=== PATIENT | male | born 1935 ===

== ENCOUNTER 2017-01-27 11:26 | Emergency (ER) | payer MEDICARE, MEDICAID ==
[2017-01-27 11:32] VITALS: BP 180/80; PULSE 79; RESP 16; TEMP 97; O2SAT 100
--- NOTE | 2017-01-27 12:29 | ED PDOC ---
HPI: General Adult Time Seen by Provider: 01/27/17 11:31 Chief Complaint (Nursing): Back Pain History Per: Patient Additional Complaint(s): Pt. states earlier today he was attempting to get out of bed but did not have his cane and he accidentally tripped and fell backwards injuring his R forearm and his lower back. States he fell flat on his back. Denies head injury, LOC, N/ V, chest pain, abdominal pain. Pt. states he was able to get up on his own. Against Medical Advice - AMA Patient Left Against Medical Advice: The patient declines admission to the hospital and wishes to leave the Emergency Department. This action is against my medical advice. This decision was made with informed refusal. The patient was told that admission to the hospital is necessary. Explanation of the reasons why were discussed. The risks of leaving were explained to the patient and include, but are not limited to, worsening of known or currently unknown conditions, permanent disability and from undiagnosed or untreated conditions. The patient has the capacity to make this informed decision and understands my explanation of the current medical problem and risks of leaving. The patient voluntarily accepts these risks and signed an AMA form documenting our conversation. The patient was given the opportunity to ask questions and reconsider. The patient was encouraged to return to the Emergency Department at any time for further care. 01/27/17 14:00 Pt. informed that he requires CT LS spine. Results and need for further imaging were d/w patient but refused and states he will f/u with [facility] instead. Pt. states he will sign AMA. This discussion was made via gas station attendant #[id number] Past Medical History Reviewed: Historical Data, Nursing Documentation, Vital Signs Vital Signs: Last Vital Signs Temp 97.0 F L 01/27/17 11:29 Pulse 79 01/27/17 11:29 Resp 16 01/27/17 11:29 BP 180/80 H 01/27/17 11:29 Pulse Ox 100 01/27/17 19:47 - Medical History PMH: Diabetes - Family History Family History: States: No Known Family Hx - Home Medications Home Medications: Ambulatory Orders Medication Instructions Recorded Tramadol HCl [Ultram] 50 mg PO BID PRN #10 tablet 01/27/17 - Allergies Allergies/Adverse Reactions: Allergies Allergy/AdvReac Type Severity Reaction Status Date / Time No Known Allergies Allergy Unverified 12/14/15 11:03 Review of Systems ROS Statement: Except As Marked, All Systems Reviewed And Found Negative Physical Exam - Physical Exam Appears: Positive for: Well, Non-toxic, No Acute Distress Head Exam: Positive for: ATRAUMATIC, NORMAL INSPECTION, NORMOCEPHALIC Skin: Positive for: Normal Color, Warm. Negative for: Rash Eye Exam: Positive for: EOMI, Normal appearance, PERRL ENT: Positive for: Normal ENT Inspection, TM Is/Are (no hemotympanum b/l) Neck: Positive for: Normal, Painless ROM Cardiovascular/Chest: Positive for: Regular Rate, Rhythm, Chest Non Tender Respiratory: Positive for: CNT, Normal Breath Sounds Pulses-Radial (L): 2+ Pulses-Radial (R): 2+ Gastrointestinal/Abdominal: Positive for: Normal Exam, Bowel Sounds, Soft. Negative for: Tenderness Back: Positive for: Normal Inspection, Muscle Spasm (b/l paralumbar tenderness ) . Negative for: L CVA Tenderness, R CVA Tenderness, Vertebral Tenderness Extremity: Positive for: Normal ROM, Other (R forearm with superficial abrasion but no laceration, swelling, or deformity. ) Neurologic/Psych: Positive for: Alert, Oriented, Gait (steady with use of cane) . Negative for: Aphasia, Facial Droop - ECG O2 Sat by Pulse Oximetry: 100 - Progress ED Course And Treament: Tylenol 650mg PO. LS spine, R forearm x-ray ordered. Pt. states his last tetanus was 1 year ago. Disposition - Clinical Impression Clinical Impression: Lumbar compression fracture, Left against medical advice - Patient ED Disposition Is Patient to be Admitted: No - Disposition Disposition: Against Medical Advice Disposition Time: 14:06 Condition: STABLE Prescriptions: Tramadol HCl [Ultram] 50 mg PO BID PRN #10 tablet PRN Reason: Other Instructions: Vertebral Compression Fracture (ED), Against Medical Advice (ED) Forms: [employer] (Wolof) Print Language: THAI
--- NOTE | 2017-01-27 15:04 | RAD ---
PROCEDURE: Radiographs of the Right Forearm HISTORY: trauma COMPARISON: No prior study available for comparison. TECHNIQUE: Frontal and lateral views obtained. FINDINGS: BONES: No evidence of acute displaced fracture nor dislocation. Osseous structures intact. No cortical destructive lesions. JOINT SPACES: Joint spaces are relatively preserved with no significant osteoarthritis. OTHER FINDINGS: Vascular calcifications are present. . Soft tissues are otherwise unremarkable IMPRESSION: No evidence of acute displaced fracture nor dislocation.
--- NOTE | 2017-01-27 15:09 | RAD ---
PROCEDURE: Radiographs of the Lumbar Spine. HISTORY: trauma COMPARISON: Comparison made with radiographs of the lumbar spine dated 07/31/2012. FINDINGS: BONES: The current study reveals is an acute compression fracture of a L1 segment. . Clinical correlation with physical exam. The no significant retropulsed fragments so far as can be seen. The remaining lumbar vertebral bodies otherwise exhibit relatively normal stature. There is mild fish-mouth endplate deformities of the T12 and T11 segments. DISC SPACES: Multilevel degenerative spondylosis. Changes include varying degrees of mild posterior disc space narrowing with endplate eburnation and small anterolateral osteophyte formation. OTHER FINDINGS: Vascular calcifications with left iliac endovascular stent graft again noted. . 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 . See above discussion for additional details and findings. . Mild aneurysmal dilatation of the distal abdominal aorta as above. Note that this report was placed in PA review folder for followup.
== END 2017-01-27 19:07 | disposition home or self-care (01) ==
LOC: H.ER 11:26
DX: M48.56XA Collapsed vertebra, not elsewhere classified, lumbar region, initial encounter for fracture (principal); M79.631 Pain in right forearm; W19.XXXA Unspecified fall, initial encounter; Y92.89 Other specified places as the place of occurrence of the external cause; E11.9 Type 2 diabetes mellitus without complications; I71.4 Abdominal aortic aneurysm, without rupture

== ENCOUNTER 2018-07-08 20:37 | Observation (INO) | payer OTHER ==
[2018-07-08 20:44] VITALS: BMI 20.9
[2018-07-08] MEDS ORDERED: Albuterol 0.083% Inhal Sol (2.5 mg/3 mL) UD INH STA (21:23)
--- NOTE | 2018-07-08 21:32 | ED PDOC ---
ED Additional Note - Date & Time of Evaluation Date of Evaluation: 07/08/18 Time of Evaluation: 20:50 - Physician Additional Note Physician Additional Note: Patient assessed and evaluated alongside CHRIS Sprague. Patient tripped over a wire on stage and fell on right elbow, sustaining a laceration which is likely an open fracture. Plan includes pain meds, tetanus booster, antibiotics, and ortho consult. Scribe Attestation: Documented by Sammie Granda, acting as a scribe for Angel Figueredo MD. Provider Scribe Attestation: All medical record entries made by the Scribe were at my direction and personally dictated by me. I have reviewed the chart and agree that the record accurately reflects my personal performance of the history, physical exam, me dical decision making, and the department course for this patient. I have also personally directed, reviewed, and agree with the discharge instructions and disposition.
[2018-07-08] MEDS ORDERED: Albuterol 0.083% Inhal Sol (2.5 mg/3 mL) UD ONE (21:44)
[2018-07-08 21:58] LABS: BASO # 0.1 K/uL (0.0-0.2); BASO % 0.9 % (0.0-2.0); EOS % 0.5 % (0.0-4.0); HEMOGLOBIN 10.6 g/dL (12.0-18.0); LYMPH # 0.8 K/uL (1.0-4.3); LYMPH % 10.4 % (20.0-40.0); MEAN CELL VOLUME 90.2 fl (80.0-94.0); MEAN CORPUSCULAR HEMOGLOBIN 29.5 pg (27.0-31.0); MEAN CORPUSCULAR HGB CONC 32.7 g/dL (33.0-37.0); MEAN PLATELET VOLUME 7.4 fl (7.2-11.7); MONO # 0.4 K/uL (0.0-0.8); MONO % 5.6 % (0.0-10.0); NEUT % 82.6 % (50.0-75.0); NRBC % 0.1 % (0.0-0.0); RBC 3.59 Mil/uL (4.40-5.90); RED CELL DISTRIBUTION WIDTH 17.8 % (11.5-14.5); WHITE BLOOD COUNT 7.3 K/uL (4.8-10.8)
[2018-07-08 22:07] LABS: ALB/GLOB RATIO 1.4 (1.0-2.1); ALBUMIN 4.2 g/dL (3.5-5.0); ALT/SGPT 16 U/L (21-72); AST/SGOT 17 U/L (17-59); BLOOD UREA NITROGEN 31 mg/dl (9-20); CALCIUM 8.9 mg/dL (8.4-10.2); GFR NON-AFRICAN AMERICAN 41
--- NOTE | 2018-07-09 01:52 | CP.PCM.HP ---
<Sultan Cleopatra - Last Filed: 07/09/18 02:49> History of Present Illness - History of Present Illness History of Present Illness: Rafaadriaefrain Phylicia: Priti [id number] History taken from patient and review of patients medical record CC: leg pain and fall HPI: 82 year old Male, lives alone, with PMHx DMII, HTN, GERD, anemia, CKD, Prostate CA, Vertebra compression fracture brought in to [facility] by ambulance presents with complaints of an unwitnessed fall around 4 pm yesterday at home. Patient reports he was changing his lower garment on his bed and fell on the floor in the process, landed on his knees on the ground and hit his head. States he was unable to get up from floor due to feeling dizzy and weak. Patient reports 3-4 episodes of vomiting after the fall. Patient does reports to loss of consciousness for ~10 minutes. States he was on the floor for approximately 2 hours. Patients neighbor checked on him and called ambulance. Patient reports generalized bodyaches including B/L lower extremities pain. States he has hx intermittent dizziness for several weeks. Also, reports history of urinary retention in the past. Denies any cough, dyspnea, or abdominal pain. Patient is admitted for head injury, anemia and renal insufficiency. PMD: Dr. Chávez (previous provider [facility], last visit on 11/2017) ROS: All 12 systems reviewed and negative except as mentioned in HPI PMHx: DMII, HTN, GERD, Prostate CA, CKD PSHx: Hernia repair in 2013, Left testicle resection in 2014 Social hx: Lives alone, uses cane to ambulate. Smokes 3-4 cigarettes for 40+years. Denies drugs/Etoh use. Family hx: unknown Medications: reviewed, see med recs Allergies: NKDA yellow pages space salesperson: Daughter Kush Hewitt [phone] Present on Admission - Present on Admission Any Indicators Present on Admission: No Review of Systems - Review of Systems Review of Systems: All 12 systems reviewed and negative except as mentioned in HPI Past Patient History - Infectious Disease Hx of Infectious Diseases: None - Past Social History Smoking Status: Never Smoked - CARDIAC Hx Hypertension: Yes - HEENT Hx Cataracts: Yes - ENDOCRINE/METABOLIC Hx Diabetes Mellitus Type 2: Yes - MUSCULOSKELETAL/RHEUMATOLOGICAL Hx Back Pain: Yes - GENITOURINARY/GYNECOLOGICAL Hx Prostate Cancer: Yes - PSYCHIATRIC Hx Substance Use: No - SURGICAL HISTORY Hx Surgeries: Yes Hx Herniorrhaphy: Yes Other/Comment: removal of rt testicle - ANESTHESIA Hx Anesthesia: Yes Hx Anesthesia Reactions: No Hx Malignant Hyperthermia: No Meds Allergies/Adverse Reactions: Allergies Allergy/AdvReac Type Severity Reaction Status Date / Time No Known Allergies Allergy Verified 07/08/18 20:44 Physical Exam - Constitutional Appears: Non-toxic, No Acute Distress, Unkempt - Head Exam Head Exam: ATRAUMATIC, NORMOCEPHALIC - Eye Exam Eye Exam: EOMI, Normal appearance, PERRL - ENT Exam ENT Exam: Mucous Membranes Moist, Normal Exam Additional comments: No hemotympanum - Neck Exam Neck exam: Positive for: Normal Inspection - Respiratory Exam Respiratory Exam: Rales (b/l lower lung), NORMAL BREATHING PATTERN. absent: Accessory Muscle Use, Wheezes, Respiratory Distress - Cardiovascular Exam Cardiovascular Exam: REGULAR RHYTHM, RRR, +S1 - GI/Abdominal Exam GI & Abdominal Exam: Normal Bowel Sounds, Soft Additional comments: +Pelvis/bladder distension - Extremities Exam Extremities exam: Positive for: pedal pulses present. Negative for: calf tenderness, joint swelling Additional comments: right hip seems to be slightly externally rotated but not short compared to left leg. - Back Exam Back exam: absent: CVA tenderness (L), CVA tenderness (R) - Neurological Exam Neurological exam: Alert, CN II-XII Intact, Oriented x3 - Psychiatric Exam Psychiatric exam: Normal Affect, Normal Mood - Skin Skin Exam: Dry Results - Vital Signs Recent Vital Signs: Last Vital Signs Temp 97.3 F L 07/08/18 20:44 Pulse 78 07/08/18 20:44 Resp 18 07/08/18 20:44 BP 120/61 07/08/18 20:44 Pulse Ox 92 L 07/08/18 20:44 - Labs Result Diagrams: 07/08/18 21:51 07/08/18 21:51 Labs: Laboratory Results - last 24 hr 07/08/18 07/08/18 07/08/18 20:49 21:51 21:51 WBC 7.3 RBC 3.59 L Hgb 10.6 L Hct 32.4 L MCV 90.2 D MCH 29.5 MCHC 32.7 L RDW 17.8 H Plt Count 281 MPV 7.4 Neut % (Auto) 82.6 H Lymph % (Auto) 10.4 L Forrest % (Auto) 5.6 Eos % (Auto) 0.5 Baso % (Auto) 0.9 Neut # (Auto) 6.0 Lymph # (Auto) 0.8 L Forrest # (Auto) 0.4 Eos # (Auto) 0.0 Baso # (Auto) 0.1 Sodium 137 Potassium 5.0 Chloride 100 Carbon Dioxide 24 Anion Gap 18 BUN 31 H Creatinine 1.6 H Est GFR ( Amer) 50 Est GFR (Non-Af Amer) 41 POC Glucose (mg/dL) 123 H Random Glucose 111 H Calcium 8.9 Total Bilirubin 0.2 AST 17 D ALT 16 L D Alkaline Phosphatase 56 Total Creatine Kinase 87 Troponin I < 0.0120 Total Protein 7.1 Albumin 4.2 Globulin 2.9 Albumin/Globulin Ratio 1.4 Assessment & Plan - Assessment and Plan (Free Text) Assessment: 82 year old Male, lives alone, with PMHx DMII, HTN, GERD, anemia, CKD, Prostate CA, Vertebra compression fracture admitted for unwitnessed fall, head injury, anemia and renal insufficiency. Plan: Head Injury with dizziness -Stable vitals -ECG: NSR@[address]/T wave changes -Head CT: negative for acute intracranial pathology -Cervical spine CT: no acute fx, multilevel spondylosis -Consider Brain MRI if patients dizziness persists -f/u AM labs B/L lower extremities pain -Total CK 87 -B/L hip x-ray: neg for fx or dislocation (final reading pending) -LS Spine x-ray: old L1 compression fx (final reading pending) -f/u B/L duplex US lower extremities -Pain management -c/w gabapentin Acute on chronic renal injury -BUN/Cr : 31/1.6 (baseline Cr 1.3) -GFR 41 -start NS @80 cc/hr -f/u AM labs Anemia likely anemia of chronic inflammation -H&H 10.6/32.4 -f/u iron studies, B12 DM II -Last A1C 7.0 on 05/2017 -Hold metformin due to FELICE -start SSI Hypertension -controlled -resume ramipril 2.5 mg po daily Hx prostate CA and urinary retention -Patient followed up with Dr. Munoz (last visit 1 yr ago as per pt) -Bladder scan -c/w flomax 0.4 mg -f/u AM labs GERD -c/w Omeprazole 40 mg po daily DVT prophylaxis: -Lovenox 40 mg sc daily Diet: -Diabetic diet Code status: -Full Code Patient seen, examined and plan discussed with Dr. Reuben Whelan, [id number] <Ochoa Alexis - Last Filed: 07/09/18 06:35> Results - Vital Signs Recent Vital Signs: Last Vital Signs Temp 97.9 F 07/09/18 02:15 Pulse 69 07/09/18 03:02 Resp 16 07/09/18 02:15 BP 135/66 07/09/18 02:15 Pulse Ox 99 07/09/18 03:02 - Labs Result Diagrams: 07/08/18 21:51 07/08/18 21:51 Labs: Laboratory Results - last 24 hr 07/08/18 07/08/18 07/08/18 20:49 21:51 21:51 WBC 7.3 RBC 3.59 L Hgb 10.6 L Hct 32.4 L MCV 90.2 D MCH 29.5 MCHC 32.7 L RDW 17.8 H Plt Count 281 MPV 7.4 Neut % (Auto) 82.6 H Lymph % (Auto) 10.4 L Forrest % (Auto) 5.6 Eos % (Auto) 0.5 Baso % (Auto) 0.9 Neut # (Auto) 6.0 Lymph # (Auto) 0.8 L Forrest # (Auto) 0.4 Eos # (Auto) 0.0 Baso # (Auto) 0.1 Sodium 137 Potassium 5.0 Chloride 100 Carbon Dioxide 24 Anion Gap 18 BUN 31 H Creatinine 1.6 H Est GFR ( Amer) 50 Est GFR (Non-Af Amer) 41 POC Glucose (mg/dL) 123 H Random Glucose 111 H Calcium 8.9 Total Bilirubin 0.2 AST 17 D ALT 16 L D Alkaline Phosphatase 56 Total Creatine Kinase 87 Troponin I < 0.0120 Total Protein 7.1 Albumin 4.2 Globulin 2.9 Albumin/Globulin Ratio 1.4 Urine Color Urine Clarity Urine pH Ur Specific [place] Urine Protein Urine Glucose (UA) Urine Ketones Urine Blood Urine Nitrate Urine Bilirubin Urine Urobilinogen Ur Leukocyte Esterase Urine RBC (Auto) Urine Microscopic WBC Ur Squamous Epith Cells Hyaline Casts 07/09/18 07/09/18 02:15 03:30 WBC RBC Hgb Hct MCV MCH MCHC RDW Plt Count MPV Neut % (Auto) Lymph % (Auto) Forrest % (Auto) Eos % (Auto) Baso % (Auto) Neut # (Auto) Lymph # (Auto) Forrest # (Auto) Eos # (Auto) Baso # (Auto) Sodium Potassium Chloride Carbon Dioxide Anion Gap BUN Creatinine Est GFR ( Amer) Est GFR (Non-Af Amer) POC Glucose (mg/dL) 73 Random Glucose Calcium Total Bilirubin AST ALT Alkaline Phosphatase Total Creatine Kinase Troponin I Total Protein Albumin Globulin Albumin/Globulin Ratio Urine Color Yellow Urine Clarity Clear Urine pH 5.0 Ur Specific [place] 1.013 Urine Protein Negative Urine Glucose (UA) Neg Urine Ketones Negative Urine Blood Small Urine Nitrate Negative Urine Bilirubin Negative Urine Urobilinogen 0.2-1.0 Ur Leukocyte Esterase Neg Urine RBC (Auto) 2 Urine Microscopic WBC < 1 Ur Squamous Epith Cells < 1 Hyaline Casts 0-2 Attending/Attestation - Attestation I have personally seen and examined this patient.: Yes I have fully participated in the care of the patient.: Yes I have reviewed all pertinent clinical information: Yes Notes (Text): 07/09/18 06:22 I saw, examined and discussed this patient with Dr Whelan. I agree with the assessment and plan above which represent my direct input. This is an 82 years old male who lives alone uses a walker to ambulate and has hx of DM II, Leg pain, Dizziness and HTN. he comes to the ED after he fell while putting on his pants, receiving trauma to the head, Hip and the back. He had episodes of vomiting and came into the ED with mild wheezing. All Radiographs of head, lumbar spine, hips and pelvis were negative for fracture. The patient is being observed in telemetry with Neuro checks and monitored on the residential monitor. We will follow [place] panes because of the Hb of 10g/dl. Follow B12 because of unsteady gait IV fluid for the Acute Duplex ultrasound of bilateral painful lower extremities Ochoa Alexis MD
[2018-07-09] MEDS ORDERED: Sodium Chloride 0.9% 1,000 ML IV SCH (02:00)
[2018-07-09] MEDS ORDERED: Albuterol-Ipratrop 3 mg / 0.5 (3 ml) UD INH PRN (02:06)
--- NOTE | 2018-07-09 02:28 | ED PDOC ---
HPI: General Adult Time Seen by Provider: 07/08/18 20:57 Chief Complaint (Nursing): Trauma History Per: Patient, Family (Rodo (pt's great grandson)) Additional Complaint(s): Pt. states at approximately 3-4pm today he was attempt to sit down on his bed but then accidentally fell down striking his head on the floor. Pt. states he did not lose consciousness. States he was unable to get up from the floor. States he had was unable to get to the bathroom to have a BM and accidentally had a BM on himself. States he did have the urge to use the bathroom. Further reports he also vomited once after the head injury. Currently c/o lower back pain, b/l hip pain, and headache. Denies chest pain, SOB, hemoptysis, fever, chills, anticoagulant use, numbness, tingling, weakness, dizziness. Past Medical History Reviewed: Historical Data, Nursing Documentation, Vital Signs Vital Signs: Last Vital Signs Temp 97.9 F 07/09/18 02:15 Pulse 87 07/09/18 02:15 Resp 16 07/09/18 02:15 BP 135/66 07/09/18 02:15 Pulse Ox 99 07/09/18 02:15 Primary Care Provider: Naomi Chávez - Medical History PMH: Diabetes, HTN Other PMH: Prostate CA - in remission, renal insufficiency - Surgical History Surgical History: No Surg Hx - Family History Family History: States: No Known Family Hx - Living Arrangements Living Arrangements: Alone - Social History Current smoker - smoking cessation education provided: Yes - Immunization History Hx Tetanus Toxoid Vaccination: No Hx Influenza Vaccination: No Hx Pneumococcal Vaccination: No - Home Medications Home Medications: Ambulatory Orders Medication Instructions Recorded Aspirin [Adult Low Dose Aspirin EC] 1 tab PO DAILY 07/09/18 Aspirin [Aspirin Chewable] 1 tab PO DAILY 07/09/18 Docusate [Colace] 1 cap PO DAILY 07/09/18 Esomeprazole Magnesium [Nexium] 1 cap PO DAILY 07/09/18 Ferrous Sulfate [Feosol] 1 tab PO DAILY 07/09/18 Gabapentin [Neurontin] 1 cap PO BID 07/09/18 Metformin HCl [Glucophage] 1 tab PO BID 07/09/18 Ramipril [Altace] 2.5 mg PO DAILY 07/09/18 Simvastatin 10 mg PO HS 07/09/18 Tamsulosin [Flomax] 1 cap PO DAILY 07/09/18 - Allergies Allergies/Adverse Reactions: Allergies Allergy/AdvReac Type Severity Reaction Status Date / Time No Known Allergies Allergy Verified 07/08/18 20:44 Review of Systems ROS Statement: Except As Marked, All Systems Reviewed And Found Negative Gastrointestinal: Positive for: Vomiting Musculoskeletal: Positive for: Back Pain Neurological: Positive for: Headache Physical Exam - Physical Exam Appears: Positive for: Well, Non-toxic, No Acute Distress Head Exam: Positive for: ATRAUMATIC, NORMAL INSPECTION, NORMOCEPHALIC Skin: Positive for: Normal Color, Warm. Negative for: Rash Eye Exam: Positive for: EOMI, Normal appearance, PERRL ENT: Positive for: Normal ENT Inspection, TM Is/Are (no hemotympanum b/l) Neck: Positive for: Normal, Painless ROM, Supple Cardiovascular/Chest: Positive for: Regular Rate, Rhythm, Chest Non Tender Respiratory: Positive for: Normal Breath Sounds. Negative for: Accessory Muscle Use, Respiratory Distress Gastrointestinal/Abdominal: Positive for: Normal Exam, Soft. Negative for: Tenderness Back: Positive for: Normal Inspection. Negative for: L CVA Tenderness, R CVA Tenderness, Vertebral Tenderness (no c-spine tenderness) Neurological/Psych: Positive for: Awake, Alert, Oriented (x3) - Laboratory Results Result Diagrams: 07/08/18 21:51 07/08/18 21:51 Lab Results: Troponin I < 0.0120 ng/mL (0.00-0.120) 07/08/18 21:51 Total Bilirubin 0.2 mg/dl (0.2-1.3) 07/08/18 21:51 AST 17 U/L (17-59) D 07/08/18 21:51 ALT 16 U/L (21-72) L D 07/08/18 21:51 Alkaline Phosphatase 56 U/L (38-126) 07/08/18 21:51 Total Protein 7.1 G/DL (6.3-8.2) 07/08/18 21:51 Albumin 4.2 g/dL (3.5-5.0) 07/08/18 21:51 Globulin 2.9 gm/dL (2.2-3.9) 07/08/18 21:51 Albumin/Globulin Ratio 1.4 (1.0-2.1) 07/08/18 21:51 - ECG ECG: Positive for: Interpreted By Me ECG Rhythm: Positive for: Sinus Rhythm. Negative for: ST/T Changes Rate: 69 O2 Sat by Pulse Oximetry: 99 - Progress ED Course And Treament: Labs, CT head, C-spine w/o contrast, LS spine, b/l hips/pelvis, CXR, albuterol neb x 1 ordered. LS spine x-ray: old L1 compression fx - also present on 01/2017 LS spine x-ray. CT head, c-spine w/o contrast: negative as per radiology report. Case d/w Dr. Alexis and arrangements made for 23 hr observation. Plan d/w patient and family and all agree. Disposition - Clinical Impression Clinical Impression: Head injury, Renal insufficiency, Fall - Patient ED Disposition Is Patient to be Admitted: Yes - Disposition Disposition Time: 00:00 Condition: FAIR
[2018-07-09 02:35] LABS: SQUAMOUS EPITHIAL < 1 /hpf (0-5); URINE HYALINE CAST 0-2 /hpf (0-2)
[2018-07-09 02:36] LABS: URINE BILIRUBIN NEGATIVE (NEGATIVE); URINE BLOOD SMALL (NEGATIVE); URINE CLARITY CLEAR (Clear); URINE COLOR YELLOW (YELLOW); URINE GLUCOSE (UA) NEG (NEGATIVE); URINE LEUKOCYTE ESTERASE NEG Leu/uL (Negative); URINE PROTEIN NEGATIVE (NEGATIVE); URINE UROBILINOGEN 0.2-1.0 mg/dL (0.2-1.0)
[2018-07-09] MEDS ORDERED: Glucagon Recombinant 1 mg Inj IM PRN (02:38)
[2018-07-09] MEDS ORDERED: Dextrose 50% SYRINGE Inj (50 ml) IV PRN (02:38)
[2018-07-09 06:30] LABS: BASO # 0.1 K/uL (0.0-0.2); BASO % 1.2 % (0.0-2.0); EOS # 0.6 K/uL (0.0-0.7); EOS % 9.5 % (0.0-4.0); HEMOGLOBIN 10.8 g/dL (12.0-18.0); LYMPH # 1.2 K/uL (1.0-4.3); LYMPH % 17.8 % (20.0-40.0); MEAN CELL VOLUME 89.4 fl (80.0-94.0); MEAN CORPUSCULAR HEMOGLOBIN 29.2 pg (27.0-31.0); MEAN CORPUSCULAR HGB CONC 32.6 g/dL (33.0-37.0); MEAN PLATELET VOLUME 7.9 fl (7.2-11.7); MONO # 0.6 K/uL (0.0-0.8); MONO % 8.4 % (0.0-10.0); NEUT # 4.2 K/uL (1.8-7.0); NEUT % 63.1 % (50.0-75.0); RBC 3.71 Mil/uL (4.40-5.90); RED CELL DISTRIBUTION WIDTH 17.8 % (11.5-14.5); WHITE BLOOD COUNT 6.7 K/uL (4.8-10.8)
[2018-07-09 06:46] LABS: ALB/GLOB RATIO 1.4 (1.0-2.1); ALBUMIN 4.1 g/dL (3.5-5.0); ALT/SGPT 14 U/L (21-72); AST/SGOT 24 U/L (17-59); BLOOD UREA NITROGEN 29 mg/dl (9-20); CALCIUM 9.2 mg/dL (8.4-10.2); GFR NON-AFRICAN AMERICAN 45; HDL CHOLESTEROL 45 MG/DL (30-70)
[2018-07-09 06:56] LABS: LDL CHOLESTEROL 114 mg/dL (0-129)
[2018-07-09 07:12] LABS: FERRITIN 21.8 ng/Ml (17.9-464)
--- NOTE | 2018-07-09 07:59 | CT ---
Date of service: 07/08/2018 PROCEDURE: CT HEAD WITHOUT CONTRAST. HISTORY: trauma COMPARISON: 12/14/2015. TECHNIQUE: Axial computed tomography images were obtained through the head/brain without intravenous contrast. Supplemental Coronal and Sagittal projections created and reviewed. Radiation dose: Total exam DLP = 849.37 mGy-cm. This CT exam was performed using one or more of the following dose reduction techniques: Automated exposure control, adjustment of the mA and/or kV according to patient size, and/or use of iterative reconstruction technique. FINDINGS: HEMORRHAGE: No intracranial hemorrhage. BRAIN: No mass effect or edema. Cortical and cerebellar atrophy, periventricular small vessel disease. VENTRICLES: Unremarkable. No hydrocephalus. CALVARIUM: Unremarkable. PARANASAL SINUSES: Unremarkable as visualized. No significant inflammatory changes. MASTOID AIR CELLS: Unremarkable as visualized. No inflammatory changes. OTHER FINDINGS: None. IMPRESSION: No acute intracranial abnormalities. No significant findings to account for the clinical presentation. No significant interval change compared to the prior examination(s). Concordant results (preliminary interpretation) provided by [facility]. Procedure Completed: 21:32. Preliminary Report: Interpreted and electronically signed: 21:54. Final Interpretation: 07:55. July 09, 2018.
[2018-07-09] MEDS: Insulin Lispro (humaLOG) 100 Units/ml Inj SC SCH ×2 (08:00→13:06)
--- NOTE | 2018-07-09 08:02 | CT ---
Date of service: 07/08/2018 PROCEDURE: CT Cervical Spine without contrast HISTORY: trauma COMPARISON: None available. TECHNIQUE: Axial computed tomography images were obtained of the cervical spine without the use of intravenous contrast. Coronal and sagittal reformatted images were created and reviewed. Supplemental 3D volume rendering. Radiation dose: Total exam DLP = 333.72 mGy-cm. This CT exam was performed using one or more of the following dose reduction techniques: Automated exposure control, adjustment of the mA and/or kV according to patient size, and/or use of iterative reconstruction technique. FINDINGS: VERTEBRAE: No fracture. Normal alignment. No destructive bony lesion. DISCS/SPINAL CANAL/NEURAL FORAMINA: No significant central canal or neural foraminal stenosis. Discs heights are grossly preserved. PARASPINAL SOFT TISSUES: Unremarkable. OTHER FINDINGS: None. IMPRESSION: No acute findings related to/ accounting for the clinical presentation. Concordant results (preliminary interpretation) provided by [facility]. Procedure Completed: 21:37. Preliminary Report: Interpreted and electronically signed: 21:57. Final Interpretation: 07:58.July 09, 2018.
[2018-07-09] MEDS ORDERED: Pantoprazole 40 mg EC Tab PO SCH (09:00)
[2018-07-09] MEDS ORDERED: ESOMEPRAZOLE MAGNESIUM PO SCH (09:00)
[2018-07-09] MEDS ORDERED: Enoxaparin 40 mg Syringe SC SCH (09:00)
--- NOTE | 2018-07-09 09:32 | RAD ---
Date of service: 07/08/2018 PROCEDURE: Radiographs of the Lumbar Spine. HISTORY: trauma COMPARISON: 07/31/2012 TECHNIQUE: Three views obtained. FINDINGS: BONES: There is severe loss in height of the L1 vertebral body consistent with compression fracture of indeterminate age. This was not present in 2013 represents interval change. The remaining vertebral bodies are maintained in height. Normal alignment is maintained. The transverse processes and posterior elements appear intact. DISC SPACES: Unremarkable. OTHER FINDINGS: None. IMPRESSION: Severe compression deformity of the L1 vertebra of indeterminate age but new since 2012.
--- NOTE | 2018-07-09 09:37 | RAD ---
PROCEDURE: Radiographs of the pelvis and bilateral hips HISTORY: trauma COMPARISON: None. TECHNIQUE: Six views obtained. FINDINGS: BONES: Pelvis: Unremarkable. Right hip:Unremarkable. Left hip:Unremarkable. JOINTS: Right hip: Unremarkable. Left hip: Unremarkable. Sacroiliac Joints: Unremarkable. Pubic symphysis: Unremarkable. SOFT TISSUES: Normal. OTHER FINDINGS: None. IMPRESSION: Unremarkable radiographs of the hips and pelvis.
[2018-07-09 10:30] LABS: IRON 111 ug/dL (49-181)
[2018-07-09 10:39] LABS: % IRON SATURATION 33 % (20-55); TOTAL IRON BINDING CAPACITY 333 ug/dL (250-450)
--- NOTE | 2018-07-09 11:32 | US ---
Date of service: 07/09/2018 PROCEDURE: Bilateral lower extremity venous duplex Doppler. HISTORY: b/l lower leg pain COMPARISON: None available. TECHNIQUE: Bilateral common femoral, superficial femoral, popliteal and posterior tibial veins were evaluated. Flow was assessed with color Doppler, compressibility, assessment of phasic flow and augmentation response. FINDINGS: COMMON FEMORAL VEIN: Right CFV: Unremarkable. Left CFV: Unremarkable. SUPERFICIAL FEMORAL VEIN: Right SFV: Unremarkable. Left SFV: Unremarkable. POPLITEAL VEIN: Right Popliteal: Unremarkable. Left Popliteal: Unremarkable. POSTERIOR TIBIAL VEIN: Right PTV: Unremarkable. Left PTV: Unremarkable. OTHER FINDINGS: None. IMPRESSION: No evidence of deep venous thrombosis in the right or left lower extremity.
--- NOTE | 2018-07-09 11:53 | CARD ---
APPROVED REPORT Date of service: 07/08/2018 EKG Measurement Heart [id number] <Conclusion> Normal sinus rhythm Normal ECG
--- NOTE | 2018-07-09 12:14 | CP.PCM.DIS ---
Provider - Provider Date of Admission: 07/09/18 00:45 Attending physician: Ochoa Alexis Time Spent in preparation of Discharge (in minutes): 20 Diagnosis - Discharge Diagnosis (1) Fall Status: Acute (2) Renal insufficiency Status: Acute Hospital Course - Lab Results Lab Results: Most Recent Lab Values WBC 6.7 K/uL (4.8-10.8) 07/09/18 06:00 RBC 3.71 Mil/uL (4.40-5.90) L 07/09/18 06:00 Hgb 10.8 g/dL (12.0-18.0) L 07/09/18 06:00 Hct 33.2 % (35.0-51.0) L 07/09/18 06:00 MCV 89.4 fl (80.0-94.0) 07/09/18 06:00 MCH 29.2 pg (27.0-31.0) 07/09/18 06:00 MCHC 32.6 g/dL (33.0-37.0) L 07/09/18 06:00 RDW 17.8 % (11.5-14.5) H 07/09/18 06:00 Plt Count 269 K/uL (130-400) 07/09/18 06:00 MPV 7.9 fl (7.2-11.7) 07/09/18 06:00 Neut % (Auto) 63.1 % (50.0-75.0) 07/09/18 06:00 Lymph % (Auto) 17.8 % (20.0-40.0) L 07/09/18 06:00 Glynn % (Auto) 8.4 % (0.0-10.0) 07/09/18 06:00 Eos % (Auto) 9.5 % (0.0-4.0) H 07/09/18 06:00 Baso % (Auto) 1.2 % (0.0-2.0) 07/09/18 06:00 Neut # (Auto) 4.2 K/uL (1.8-7.0) 07/09/18 06:00 Lymph # (Auto) 1.2 K/uL (1.0-4.3) 07/09/18 06:00 Glynn # (Auto) 0.6 K/uL (0.0-0.8) 07/09/18 06:00 Eos # (Auto) 0.6 K/uL (0.0-0.7) 07/09/18 06:00 Baso # (Auto) 0.1 K/uL (0.0-0.2) 07/09/18 06:00 Sodium 137 mmol/l (132-148) 07/09/18 06:00 Potassium 4.8 MMOL/L (3.6-5.0) 07/09/18 06:00 Chloride 101 mmol/L (98-107) 07/09/18 06:00 Carbon Dioxide 27 mmol/L (22-30) 07/09/18 06:00 Anion Gap 14 (10-20) 07/09/18 06:00 BUN 29 mg/dl (9-20) H 07/09/18 06:00 Creatinine 1.5 mg/dl (0.8-1.5) 07/09/18 06:00 Est GFR ( Amer) 54 07/09/18 06:00 Est GFR (Non-Af Amer) 45 07/09/18 06:00 POC Glucose (mg/dL) 92 mg/dL (65-110) 07/09/18 07:55 Random Glucose 77 mg/dL (75-110) 07/09/18 06:00 Calcium 9.2 mg/dL (8.4-10.2) 07/09/18 06:00 Phosphorus 3.4 mg/dl (2.5-4.5) 07/09/18 06:00 Magnesium 1.9 MG/DL (1.6-2.3) 07/09/18 06:00 Iron 111 ug/dL (49-181) 07/09/18 09:45 TIBC 333 ug/dL (250-450) 07/09/18 09:45 % Saturation 33 % (20-55) 07/09/18 09:45 Ferritin 21.8 ng/Ml (17.9-464) 07/09/18 06:00 Total Bilirubin 0.5 mg/dl (0.2-1.3) 07/09/18 06:00 AST 24 U/L (17-59) 07/09/18 06:00 ALT 14 U/L (21-72) L 07/09/18 06:00 Alkaline Phosphatase 65 U/L (38-126) 07/09/18 06:00 Total Creatine Kinase 87 U/L (55-170) 07/08/18 21:51 Troponin I < 0.0120 ng/mL (0.00-0.120) 07/09/18 06:00 Total Protein 7.1 G/DL (6.3-8.2) 07/09/18 06:00 Albumin 4.1 g/dL (3.5-5.0) 07/09/18 06:00 Globulin 3.0 gm/dL (2.2-3.9) 07/09/18 06:00 Albumin/Globulin Ratio 1.4 (1.0-2.1) 07/09/18 06:00 Triglycerides 225 mg/DL (0-149) H D 07/09/18 06:00 Cholesterol 185 mg/dL (0-199) 07/09/18 06:00 LDL Cholesterol Direct 114 mg/dL (0-129) 07/09/18 06:00 HDL Cholesterol 45 MG/DL (30-70) 07/09/18 06:00 Vitamin B12 256 pg/mL (239-931) 07/09/18 06:00 Urine Color Yellow (YELLOW) 07/09/18 02:15 Urine Clarity Clear (Clear) 07/09/18 02:15 Urine pH 5.0 (5.0-8.0) 07/09/18 02:15 Ur Specific [place] 1.013 (1.003-1.030) 07/09/18 02:15 Urine Protein Negative mg/dL (NEGATIVE) 07/09/18 02:15 Urine Glucose (UA) Neg mg/dL (NEGATIVE) 07/09/18 02:15 Urine Ketones Negative mg/dL (NEGATIVE) 07/09/18 02:15 Urine Blood Small (NEGATIVE) 07/09/18 02:15 Urine Nitrate Negative (NEGATIVE) 07/09/18 02:15 Urine Bilirubin Negative (NEGATIVE) 07/09/18 02:15 Urine Urobilinogen 0.2-1.0 mg/dL (0.2-1.0) 07/09/18 02:15 Ur Leukocyte Esterase Neg Yfn/uL (Negative) 07/09/18 02:15 Urine RBC (Auto) 2 /hpf (0-3) 07/09/18 02:15 Urine Microscopic WBC < 1 /hpf (0-5) 07/09/18 02:15 Ur Squamous Epith Cells < 1 /hpf (0-5) 07/09/18 02:15 Hyaline Casts 0-2 /hpf (0-2) 07/09/18 02:15 - Hospital Course Hospital Course: 82 year old Male, lives alone, with PMHx DMII, HTN, GERD, anemia, CKD, Prostate CA, Vertebra compression fracture admitted for unwitnessed fall, head injury, anemia and renal insufficiency. Patient had a CT scan which was negative for acute intracranial pathology, no cervical fracture, there is a severe compression fracture undetermined age , xray neg for dislocation in lower extremities., labs + for acute renal failure. Patient received fluid Cr corrected to 1.5. VIt B 12 256 normal, iron study normal. Pt/OT cleared patient, and will need outpatient service. Patient seen and examined, patient still have pain in lower extremities. Otherwise patient is feeling good. Question and concern answered. Patient is stable to be discharged home and follow up with PCP Referral to PT as outpatient is done. Patient will be contacted. Diagnositic study -ECG: NSR@[address]/T wave changes -Head CT: negative for acute intracranial pathology -Cervical spine CT: no acute fx, multilevel spondylosis -B/L hip x-ray: neg for fx or dislocation -LS Spine x-ray: old L1 compression fx Negative for DVT Discharge Exam - Head Exam Head Exam: ATRAUMATIC, NORMAL INSPECTION, NORMOCEPHALIC - Eye Exam Eye Exam: EOMI, Normal appearance, PERRL Pupil Exam: NORMAL ACCOMODATION, PERRL - Respiratory Exam Respiratory Exam: Clear to PA & Lateral, NORMAL BREATHING PATTERN, UNREMARKABLE - Cardiovascular Exam Cardiovascular Exam: REGULAR RHYTHM, +S1, +S2 - GI/Abdominal Exam GI & Abdominal Exam: Normal Bowel Sounds, Unremarkable - Extremities Exam Additional comments: Decrease Strength of left lower extremities due to pain - Neurological Exam Neurological exam: Alert, CN II-XII Intact, Oriented x3, Reflexes Normal - Psychiatric Exam Psychiatric exam: Normal Affect, Normal Mood - Skin Skin Exam: Dry, Intact, Normal Color Discharge Plan - Follow Up Plan Condition: FAIR Disposition: HOME/ ROUTINE Patient education suggested?: Yes Additional Instructions: Follow up outpatient in 1 week. Follow up PT
--- NOTE | 2018-07-09 13:35 | RAD ---
Date of service: 07/08/2018 HISTORY: hypoxic, trauma COMPARISON: 12/14/2015. FINDINGS: LUNGS: No active pulmonary disease. PLEURA: No significant pleural effusion identified, no pneumothorax apparent. CARDIOVASCULAR: No radiographic findings to suggest acute or significant cardiovascular disease. Atherosclerotic calcifications identified primarily aortic arch. OSSEOUS STRUCTURES: No significant abnormalities. VISUALIZED UPPER ABDOMEN: Normal. OTHER FINDINGS: None. IMPRESSION: No active disease. No significant interval change compared to the prior examination(s).
[2018-07-09 17:04] VITALS: BP 119/65; PULSE 86; RESP 18; TEMP 98.6; O2SAT 96
[2018-07-09] MEDS ORDERED: Pravastatin Sodium 20 MG TAB PO SCH (22:00)
== END 2018-07-09 15:19 | disposition home or self-care (01) ==
LOC: H.ER 20:37 → H.ERHOLD 07-09 00:45
PROVIDERS: ADMIT Internal Medicine; ATTEND Internal Medicine
DX: S09.90XA Unspecified injury of head, initial encounter (principal); M48.56XA Collapsed vertebra, not elsewhere classified, lumbar region, initial encounter for fracture; I12.9 Hypertensive chronic kidney disease with stage 1 through stage 4 chronic kidney disease, or unspecified chronic kidney disease; N18.3 Chronic kidney disease, stage 3 (moderate); E11.22 Type 2 diabetes mellitus with diabetic chronic kidney disease; D63.1 Anemia in chronic kidney disease; R26.89 Other abnormalities of gait and mobility; K21.9 Gastro-esophageal reflux disease without esophagitis; W06.XXXA Fall from bed, initial encounter; Y92.003 Bedroom of unspecified non-institutional (private) residence as the place of occurrence of the external cause; F17.210 Nicotine dependence, cigarettes, uncomplicated; Z85.46 Personal history of malignant neoplasm of prostate; Z92.3 Personal history of irradiation; Z79.82 Long term (current) use of aspirin
CPT/HCPCS: 70450; 71045; 72100; 72125; 73522; 80053; 80061; 81003; 82550; 82607; 82728; 82948; 83036; 83540; 83550; 83735; 84100; 84153; 84154; 84484; 85025; 93005; 93970; 94640; 96372; 97161; 99285; G0378; G8978; G8979; J1650; J7030